=== PATIENT | female | born 1990 | race Caucasian/White ===

== ENCOUNTER 2024-08-28 14:34 | Emergency (ER) | payer BC, SELFPAY ==
--- NOTE | ~2024-08-28 | XR_ITS ---
XR ankle LT min 3V Ordering provider: Johnathan Barr MD History: . ankle sprain . Comparison: None. FINDINGS: BONES: No acute fracture or dislocation. JOINT SPACES: The ankle mortise is normal. SOFT TISSUES: Normal. IMPRESSION: No acute osseous abnormality left ankle. Reviewed, dictated and finalized at location A.
[2024-08-28 14:58] VITALS: BP 127/79; PULSE 75; RESP 16; TEMP 36.5; O2SAT 100
--- OUTSIDE RECORDS SUMMARY | 2024-08-28 16:04 | XMS_ITS | Clinical Summary ---
Author Organization [facility] Address [address] [place] [address] Phone Care Team Providers Care Hearing Care Professional Name Role Phone Unavailable Primary Care Provider Unavailabl e Allergies No known active allergies Medications vit-iron fumarate-fa (LIZ ) 28 mg iron- 800 mcg Tablet Take 1 Tablet by mouth daily. Active ferrous sulfate 325 mg (65 mg iron) tabletIndicatio ns:Anemia affecting in third trimester Take 1 Tablet (325 mg) by mouth daily. 90 Tablet 4 Active terconazole (TERAZOL) 0.4% vaginal cream Insert 5 Grams (1 Applicatorful) vaginally daily at bedtime. For 7 nights 45 Gram 4 Active fluconazole (DIFLUCAN) 150 mg tablet Take 1 tab (150 mg) by mouth on day one. 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 Resolved Problems Problem Noted Date Diagnosed Date Resolved Date Normal labor 07/10/2023 07/10/2023 Encounters Date Type Department Care Team Description 08/11/2024 External Device Data [facility] ABSTRACTION Provider, Abstract 07/11/2024 External Device Data [facility] ABSTRACTION Provider, Abstract 07/10/2024 External Device Data [facility] ABSTRACTION Provider, Abstract 07/08/2024 External Device Data [facility] ABSTRACTION Provider, Abstract 07/07/2024 External Device Data [facility] ABSTRACTION Provider, Abstract 06/23/2024 External Device Data [facility] ABSTRACTION Provider, Abstract from Last 3 Months Immunizations Immunization Administration Dates Next Due (ADACEL/BOOSTRIX)(10 YR UP) TDAP VACCINE, 0.5ML, IM 07/13/2021,06/14/2017,02/01/2015,12/16 (GARDASIL)(9-45 YRS) HUMAN PAPILLOMAVIRUS VACCINE, TYPES 6, 11, 16, 18, QUADRIVALENT (4VHPV), 3 DOSE, IM 07/02/2007,02/19/2007,12/16/2006 (HAVRIX/VAQTA)(12 MO-18 YRS) HEPATITIS A VACCINE 0.5 ML PED/ADOL 2 DOSE, IM 02/19/2007,06/08/2004 (MENACTRA)(9 MO-55 YR) MENIN GOCOCCAL POLYSACCHARIDE A, C, Y AND W-135 DIPTHERIA TOXOID CONJUGATE VACCINE, (PF), 0.5ML, IM 12/16/2006 (PNEUMOVAX 23)(50 YRS UP) PN EUMOCOCCAL POLYSACCHARIDE (PPV23) 0.5 ML, IM 09/08/2009 Family History Medical History Relation Name Comments Breast Cancer Maternal Aunt Colon Cancer Neg Hx Ovarian Cancer Neg Hx Relation Name Status Comments Maternal Aunt Alive Social History Tobacco Use Types Packs/Day Years Used Date Smoking Tobacco: Never Smokeless Tobacco: Never Tobacco Cessation:Counseling Given: Not Answered Alcohol Use Standard Drinks/Week Comments Not Currently 0 (1 standard drink = 0.6 oz pur e alcohol) Feeling Safe Answer Date Recorded Are you in a relationship wi th someone who hurts you emotionally and/or physically? 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 LAYER Gender Identity Not on file Sexual Orientation Not on file Last Filed Vital Signs Vital Sign Reading Time Taken Comments Blood Pressure 116/80 03/12/2024 3:42 PM DRAIN LAYER Pulse 89 03/12/2024 3:42 PM DRAIN LAYER Temperature 37.1 C (98.7 F) 02/26/2024 10:34 AM CDT Respiratory Rate 18 07/11/2023 7:39 AM DRAIN LAYER Oxygen Saturation 98% 03/12/2024 3:42 PM DRAIN LAYER Inhaled Oxygen Concentration - - Weight 55.3 kg (122 lb) 03/12/2024 3:42 PM DRAIN LAYER Height 170.2 cm (5' 7 ) 03/12/2024 3:42 PM DRAIN LAYER Body Mass Index 19.11 03/12/2024 3:42 PM DRAIN LAYER Plan of Treatment Health Maintenance Due Date Last Done Comments HEPATITIS B VACCINES (1 of 3 - 19+ 3-dose series) 02/12/2011 INFLUENZA VACCINE (#1) 2023 PAP SMEAR 11/18/2026 11/19/2023 CERVICAL CANCER SCREENING 11/18/2028 HPV/Cotest (21-29) 11/18/2028 11/19/2023 HPV/Cotest (30-65) 11/18/2028 11/19/2023 DTAP/TDAP/TD VACCINES (5 - T d or Tdap) 07/14/2031 07/13/2021, 06/14/2017, 02/01/2015, Additional history exists HPV VACCINES Completed 07/02/2007, 02/03, 12/16/2006 Procedures Procedure Name Priority Date/Time Associated Diagnosis Comments CERV/VAG CYTO AGE BASED SCREEN PAP Routine 11/19/2023 3:48 PM CDT Well woman exam with routine gynecological exam Screening for cervical cancer Screening for human papillomavirus (HPV) from Last 3 Months or Most Recently Relevant to Health Maintenance Results * CERV/VAG CYTO AGE BASED SCREEN PAP (11/19/2023 3:48 PM CDT) COMMENT (PAP): [facility] [place] Comment: This order for age-based cervical cancer and STI screening follows ACOG guidelines(PB 168, 140, KNC091). See individual assays for performing site location. CLINICAL INFORMATION [facility] Comment:None given LAST MENSTRUAL PERIOD [facility] Comment:NONE GIVEN PREV PAP: [facility] [place] Comment:NONE GIVEN PREV BX: [facility] [place] Comment:NONE GIVEN SOURCE [facility] [place] Comment:Endocervix ADEQUACY: [facility] Comment: Satisfactory for evaluation. Endocervical/transformation zone component present. Age and/or menstrual status not provided PAP INTERP [facility] Comment: Cytology Results: Negative for intraepithelial lesion or malignancy. COMMENT (PAP TEST) [facility] [place] Comment: This Pap test has been evaluated with computer assisted technology. WOOD DOWEL MACHINE OPERATOR: Nataly Juárez Comment: BRET MEJÍA(ASCP) CT Screening location: [place] [address] [place] [address] EXPLANATORY NOTE Que ValopaaMoody Juárez Comment: EXPLANATORY NOTE: The Pap is a screening test for cervical cancer. It is not a diagnostic test and is subject to false negative and false positive results. It is most reliable when a satisfactory sample, regularly obtained, is submitted with relevant clinical findings and history, and when the Pap result is evaluated along with historic and current clinical information. HPV E6/E7 Not Detected Not Detected [facility] [email or web address] Marquita Comment: Methodology: Applications System Analyst-Mediated Amplification This assay detects E6/E7 viral messenger RNA (mRNA) from 14 high-risk HPV types (16,18,31,33,35,39,45,51,52,56,58,59,66,68). Cervical sources are required for HPV testing. If a vaginal source from a patient who has had a total hysterectomy with removal of cervix was submitted, please contact the testing laboratory for alternative testing options. For additional information, please refer to http://education.[employer]/faq/ACQ776y4 (This link if provided for information/ educational purposes only.) Test Performed at: [facility] [id number] [address] Whitney SANDOVAL Genital SWAB OF ENDOCERVIX / Unknown 11/19/2023 3:48 PM CDT 11/20/2023 3:15 AM CDT Sobeida Mccain NP PATHOLOGY/CYTOLOGY ORDERABLES nal Result [facility] [phone] [facility] [id number] [id number] from Last 3 Months or Most Recently Relevant to Health Maintenance Insurance BCBS BLUE ACCESS/TRUE BLUE PPO [employer] PPO Advance Directives For more information, please contact: [phone] * Full Code (Latest Code Status on File) Date Activated Date Inactivated Comments 07/10/2023 9:06 AM 07/11/2023 3:29 PM * Full Code Date Activated Date Inactivated Comments 07/10/2023 6:52 AM 07/10/2023 9:06 AM
--- NOTE | 2024-08-28 16:31 | ED_ITS ---
HPI - Extremity Injury (Lower) General Chief Complaint: Extremity Injury, Lower Stated Complaint: left foot injury Time Seen by Provider: 08/28/24 15:48 History of Present Illness HPI Narrative: 34-year-old female presenting for subacute left ankle injury. She states she tripped while ascending a flight of stairs 4 days ago on rolled her left ankle. Went to urgent care and obtain x-ray images that diagnosed with a sprain ligament. She has been using a crutch and some ankle brace for assistance. Endorses pain significantly improved after ibuprofen 600 mg 1 time. States he is getting some occasional burning sensations and numbness in the lateral aspect of her left foot where the rolled ankle injury was. No new injury trauma. She went to be evaluated for this. No falls or injury otherwise. Was otherwise in her normal state of health no chronic medical complaints or conditions such as peripheral neuropathy or diabetes. Review of Systems Review of Systems: As reviewed above in HPI Exam Narrative: GENERAL: [Well-appearing, well-nourished, and in no acute distress.] HEAD: [Normocephalic, atraumatic.] EYES: [PERRLA and EOMI.] ENT: Nares clear, no rhinorrhea or epistaxis. Mucous membranes moist. NECK: Supple. CHEST: [Clear to auscultation. No respiratory distress.] HEART: [Regular rate and rhythm]. No murmur heard. [Normal peripheral pulses.] ABDOMEN: [Soft, nondistended], [nontender], [No rigidity or guarding] EXTREMITIES: Normal range of motion. [No edema.] Swelling to the lateral malleolus on the left foot but no overlying ecchymoses. No plantar ecchymosis. Good range of motion of plantar and dorsiflexion. Able to bear weight with the assistance of a crutch. No posterior ridge tenderness. No skin breakdown. SKIN: Warm, dry, no rash. NEURO: [No focal deficits]. Alert and oriented [x3.] PSYCH: [Normal mood and affect.] Course Vital Signs Vital signs: Vital Signs Temperature 36.5 C 08/28/24 14:58 Pulse Rate 75 08/28/24 14:58 Respiratory Rate 16 08/28/24 14:58 Blood Pressure 127/79 08/28/24 14:58 Pulse Oximetry 100 04/25/25 14:58 Oxygen Delivery Room Air 08/28/24 14:58 Temperature 36.5 C 08/28/24 14:58 Pulse Rate 75 08/28/24 14:58 Respiratory Rate 16 08/28/24 14:58 Blood Pressure 127/79 08/28/24 14:58 Pulse Oximetry 100 08/28/24 14:58 Oxygen Delivery Room Air 08/28/24 14:58 MDM - Extremity Injury (Lower) MDM Narrative Medical decision making narrative: 34-year-old female presenting for subacute left ankle injury. She has signs and symptoms of a rolled left ankle and potential ligamentous sprain. Low suspicion for occult fracture but we will obtain x-ray images as we do not have anything to compare to from urgent care. She has normal vital signs, good dorsalis pedis pulse and neurovascularly intact. Her symptoms are consistent with the swelling that is appreciable on her physical examination. X-rays were independently reviewed and negative for any acute osseous injury. She was encouraged to take Tylenol and ibuprofen for any aches or swelling and follow-up with regular doctor. Patient's questions were answered she was safe for discharge. Medical Records Attestation: I reviewed the patient's medical records. Imaging Data Attestation: I personally reviewed and interpreted this imaging study as foll ows: My impression: Impressions Ankle X-Ray 08/28/24 16:25 IMPRESSION: No acute osseous abnormality left ankle. Discharge Plan Discharge Clinical Impression: Ankle sprain and strain Patient Disposition: Home Condition: Stable Instructions: Antibiotic Form Additional Instructions: Your x-ray does not show any occult fractures and there are no hairline breaks. Your symptoms are consistent with the degree of swelling on your examination. Take Tylenol and ibuprofen around the clock for the next several days for swelling and pain control. Continue using her crutches and brace for ambulation assistance. You can start adding in heat products in addition to the ice now that your injury was several days old. Return with any new or worsening concerns. Patient Language: Yakut Follow-up/Referrals: PHYSICIAN,FOREST [employer] PROFESSOR [Primary Care Provider] - Time of Disposition: 16:33
[2024-08-28 16:36] VITALS: BP 118/68; PULSE 76; RESP 16; TEMP 36.6; O2SAT 100
== END 2024-08-28 16:40 | disposition home or self-care (01) ==
PROVIDERS: Emergency Provider Student in an Organized Health Care Education/Training Program
DX: S93.402A Sprain of unspecified ligament of left ankle, initial encounter (principal); S96.912A Strain of unspecified muscle and tendon at ankle and foot level, left foot, initial encounter; X50.9XXA Other and unspecified overexertion or strenuous movements or postures, initial encounter; W18.49XA Other slipping, tripping and stumbling without falling, initial encounter
CPT/HCPCS: 73610; 99283